=== PATIENT | male | born 1980 | race Caucasian/White ===

== ENCOUNTER 2020-09-22 19:47 | Emergency (ER) | payer OTHER, SELFPAY ==
--- NOTE | ~2020-09-22 | CT_ITS ---
EXAMINATION: CT brain wo con INDICATION: Altered mental status COMPARISON: None TECHNIQUE: Standard unenhanced head CT. The dose-length product (DLP) was 605.33 mGy-cm. The mA was a djusted according to patient size. Iterative reconstruction technique was employed. FINDINGS: There is no intracranial hemorrhage, acute infarction, or abnormal mass lesion. The ventric les are normal. There is no abnormal mass effect or midline shift. The kirkpatrick-white matter differentiat ion is normal. The basal cisterns are patent. The orbits are normal. There is mild mucosal thickening of the paranasal sinuses. IMPRESSION: 1. No acute intracranial abnormality. Reviewed, dictated and finalized at location A. IFIED NURSES AIDE
[2020-09-22 19:51] VITALS: BP 158/72; PULSE 92; RESP 18; TEMP 36.7; O2SAT 99
--- NOTE | 2020-09-22 20:18 | ED.OVERDOSE ---
HPI - Overdose General Chief Complaint: Overdose Stated Complaint: od-fentanyl Time Seen by Provider: 09/22/20 20:09 Source: patient Mode of arrival: ambulatory Limitations: no limitations History of Present Illness HPI Narrative: Patient is a 40-year-old male brought in by EMS after overdosing on fentanyl. Patient was found unresponsive by his girlfriend, 911 was called, Police Department gave him 4 mg of Narcan, and became responsive right after, reverse his symptoms. Patient admits to snorting fentanyl. Denies any other drugs. Patient complaining of nausea feel like shit . Patient denies any headache, dizziness, chest pain, shortness of breath, abdominal pain, vomiting, diarrhea, fever or chills. Denies suicidal or homicidal ideation. Patient admits to chronic drug abuse. Related Data Allergies Allergy/AdvReac Type Severity Reaction Status Date / Time No Known Allergies Allergy Unverified 03/11/18 21:17 Review of Systems Review of Systems: All systems reviewed & are unremarkable except as noted in HPI and below Constitutional: Constitutional: Denies body ache(s), Denies chills, Denies excessive sweating, Denies fatigue, Denies fever(s), Denies headache(s), Denies lethargy, Denies malaise, Denies weakness and Denies weight loss Eyes: Eyes: Denies blurry vision, Denies change in vision and Denies loss of vision ENT: Denies dizziness, Denies ear discharge, Denies headache(s), Denies lip swelling, Denies epistaxis, Denies nasal congestion, Denies neck pain, Denies throat swelling and Denies tongue swelling Cardiovascular: Cardiovascular: Denies chest pain, Denies chest pain at rest, Denies chest pain with activity, Denies diaphoresis, Denies rapid heart rate, Denies edema, Denies irregular heart rhythm, Denies lightheadedness, Denies palpitations, Denies dyspnea and Denies dyspnea on exertion Respiratory: Respiratory: Denies chest congestion, Denies cough, Denies hemoptysis, Denies dyspnea and Denies dyspnea on exertion Gastrointestinal: Gastrointestinal: Denies abdominal pain, Denies melena, Denies hematochezia, Denies diarrhea, Denies vomiting and Denies hematemesis Musculoskeletal: Musculoskeletal: Denies abnormal gait, Denies deformity, Denies joint swelling, Denies limited range of motion, Denies neck pain and Denies numbness Neurologic: Denies Abnormal speech present, Denies abnormal gait, Denies confusion, Denies dizziness, Denies headache(s), Denies focal weakness, Denies loss of vision, Denies numbness, Denies Other visual disturbances, Denies Sensory deficit (Neuro) and Denies weakness Psychiatric: Psychiatric: Denies confusion, Denies depression, Denies auditory hallucinations, Denies homicidal ideation and Denies suicidal ideation Endocrine: Endocrine: Denies cold intolerance, Denies excessive sweating, Denies fatigue, Denies heat intolerance and Denies palpitations Hematologic/Lymphatic: Hematologic/Lymphatic: Denies easy bleeding and Denies easy bruising Allergic/Immunologic: Allergic/Immunologic: Denies lip swelling, Denies throat swelling and Denies tongue swelling Exam Const: General: cooperative, healthy appearing, comfortable, no acute distress, well developed, alert and awake; No confusion Orientation/consciousness: oriented to person, oriented to place, oriented to time, patient oriented x3 and No confusion Limitations: no limitations HENMT: Head: normal to inspection, normocephalic and atraumatic Ears: hearing grossly normal bilaterally, TM normal on the right and TM normal on the left General nose exam: Normal external nose present, Normal nares present and No nasal discharge present Face and sinus: normal facial exam Mouth: Yes Normal oral and palatal mucosa present, Yes lip normal, Yes tongue normal and Yes oropharynx normal Throat: posterior oropharynx normal, tonsils normal and uvula midline Eyes: General: appearance normal, both eyes and all related structures Pupils: Equal, round and reactive pup
[2020-09-22] MEDS: ONDANSETRON INJ 4 MG/2 ML VIAL IV PUSH (21:11)
[2020-09-22] MEDS: SODIUM CHLORIDE 0.9% IV 1,000 ML 999 ML IV CONT (21:13)
[2020-09-22 21:36] VITALS: BP 132/68; PULSE 78; RESP 16; O2SAT 97
--- NOTE | 2020-09-22 22:03 | PC.NURSE ---
Pt refused to let this RN draw labs in specific areas where attempt could have been made. States You arent going there, that hurts. Only right here. Multiple attempts made in areas pt pointed out, unsuccessful.
[2020-09-22 22:15] LABS: Barbiturate Screen Urine Negative (Negative); Benzodiazepines Screen Urine Negative (Negative)
[2020-09-22 22:20] LABS: Cannabinoid Screen Urine Positive (Negative); Cocaine Screen Urine Negative (Negative); Methadone Screen Urine Negative (Negative); Opiate Screen Urine Negative (Negative); Phencyclidine Screen Urine Negative (Negative)
[2020-09-22 22:43] LABS: Amphetamine Screen Urine Positive (Negative)
--- NOTE | 2020-09-22 23:34 | PC.NURSE ---
Report received from JUAN Albert. Assumed care of patient at this time.
--- NOTE | 2020-09-23 00:13 | PC.NURSE ---
This nurse went into have patient sign AMA, patient states he was not refusing anything. Patient states that we can draw blood. This nurse was unsuccessful in attempt. record librarian notified, contacted phlebotomy, spoke with Kaitlynn, she stated she will come down to draw patient when she can.
--- NOTE | 2020-09-23 01:05 | PC.NURSE ---
Patient refused repeat VS.
--- NOTE | 2020-09-23 01:21 | PC.NURSE ---
Another nurse attempted blood draw, unsuccessful. ERP notified.
== END 2020-09-23 05:22 | disposition left against medical advice (07) ==
PROVIDERS: Emergency Provider Emergency Medicine
DX: T40.411A Poisoning by fentanyl or fentanyl analogs, accidental (unintentional), initial encounter (principal)
CPT/HCPCS: 70450; 80307; 96361; 96374; 99284; J2405; J7030

== ENCOUNTER 2020-11-10 15:51 | Emergency (ER) | payer OTHER, SELFPAY ==
--- NOTE | ~2020-11-10 | US_ITS ---
EXAMINATION:US venous doppler LE RT INDICATION:Erythema of the calf TECHNIQUE: Multiple grayscale, color flow and Doppler images of the right lower extremity deep venous systems were obtained and reviewed. COMPARISON:No prior studies for comparison. FINDINGS: The common femoral, superficial femoral and popliteal veins demonstrate normal respiratory variation, augmentation and compressibility. Color flow is also seen within the posterior tibial, pe roneal, greater saphenous and profunda veins. IMPRESSION: 1: No lower extremity deep venous thrombosis. Reviewed, dictated and finalized at location A.
[2020-11-10 15:54] VITALS: PULSE 62; RESP 18; TEMP 36.8; O2SAT 100
--- NOTE | 2020-11-10 18:54 | ED.GENADULT ---
HPI - General Adult General Chief complaint: Skin/Abscess/Foreign Body Stated complaint: right leg swelling Time Seen by Provider: 11/10/20 17:44 Source: patient History of Present Illness HPI narrative: Patient is a 40 y/o male complaining of sharp and burning right lower leg pain starting 2 days ago. He rates his pain as 6-7/10. Weight bearing aggravates his pain. There is no pain radiation. He states that he took some Bactrim from previous prescription and he feels slightly better. He has no fever or chill. Related Data Home Medications Medication Instructions Recorded Confirmed sulfamethoxazole-trimethoprim tablet 11/10/20 11/10/20 Allergies Allergy/AdvReac Type Severity Reaction Status Date / Time Penicillins AdvReac Nausea and Verified 11/10/20 15:57 Vomiting Review of Systems Constitutional: Constitutional: Denies chills, Denies fever(s), Denies headache(s) and Denies weakness Eyes: Eyes: Denies blurry vision ENT: Denies headache(s) and Denies neck pain Cardiovascular: Cardiovascular: Denies chest pain and Denies dyspnea Respiratory: Respiratory: Denies cough and Denies dyspnea Gastrointestinal: Gastrointestinal: Denies abdominal pain, Denies diarrhea, Denies nausea and Denies vomiting Genitourinary: Genitourinary: Denies hematuria and Denies dysuria Musculoskeletal: Musculoskeletal: Denies back pain, Denies neck pain and Reports other (right leg pain) Integumentary/Breasts: Skin/Breast: Reports erythema (right leg) Neurologic: Denies headache(s) and Denies weakness [facility] Social History Social History Gender identity (if verbalized by the patient): Male Exam Const: General: no acute distress and well developed Orientation/consciousness: oriented to person, oriented to place, oriented to time and patient oriented x3 HENMT: Head: normocephalic Ears: external ears normal General nose exam: Normal external nose present Eyes: General: appearance normal, both eyes and all related structures Conjunctivae: conjunctivae normal Neck: Neck: normal visual inspection and full ROM Chest: Chest palpation & inspection: normal inspection of the chest and no tenderness Resp: Effort & Inspection: normal respiratory effort Auscultation: clear to auscultation bilaterally Cardio: Rate: regular rate Rhythm: regular rhythm GI: GI Palp: No abdominal tenderness and Yes Soft to palpation Skin: General skin exam: normal color, turgor normal and erythema (right lower leg) Neuro: General: oriented to person, oriented to place, oriented to time and patient oriented x3 Cognition (Neuro): normal cognition Extrem: General: normal to inspection, full ROM and no pedal edema Psych: Appearance: grossly normal Mental Status: mental status grossly normal Affect: normal affect Course Reevaluation(s) Reevaluation #1: Patient left ED before labs are done and before evaluation is complete. He is considered to have left AMA. He is awake, alert and competent to make medical decision for himself. Date: 11/10/20 Vital Signs Vital signs: Vital Signs Temperature 36.8 C 11/10/20 15:54 Pulse Rate 62 11/10/20 15:54 Respiratory Rate 18 11/10/20 15:54 Pulse Oximetry 100 11/10/20 15:54 Temperature 36.8 C 11/10/20 15:54 Pulse Rate 62 11/10/20 15:54 Respiratory Rate 18 11/10/20 15:54 Pulse Oximetry 100 11/10/20 15:54 Medical Decision Making Vital Signs Vital Signs: Vital Signs Temperature 36.8 C 11/10/20 15:54 Pulse Rate 62 11/10/20 15:54 Respiratory Rate 18 11/10/20 15:54 Pulse Oximetry 100 11/10/20 15:54 Temperature 36.8 C 11/10/20 15:54 Pulse Rate 62 11/10/20 15:54 Respiratory Rate 18 11/10/20 15:54 Pulse Oximetry 100 11/10/20 15:54 Discharge Plan Discharge Clinical Impression: Cellulitis and abscess of right leg Patient Disposition: Left Against Medical Advice Condition: Stable
== END 2020-11-10 19:36 | disposition left against medical advice (07) ==
PROVIDERS: Emergency Provider Emergency Medicine
DX: L03.115 Cellulitis of right lower limb (principal); L02.415 Cutaneous abscess of right lower limb
CPT/HCPCS: 93971; 99284

== ENCOUNTER 2020-11-25 21:32 | Emergency (ER) | payer OTHER, SELFPAY ==
[2020-11-25 21:38] VITALS: BP 123/63; PULSE 81; RESP 20; TEMP 37.4; O2SAT 98
[2020-11-26 00:46] VITALS: BP 95/56; PULSE 76; RESP 20; O2SAT 98
--- NOTE | 2020-11-26 00:46 | ED.SKABFB ---
HPI - Skin/Abscess/Foreign Bdy General Chief complaint: Skin/Abscess/Foreign Body Stated complaint: cyst on thigh Time Seen by Provider: 11/26/20 00:27 Source: patient Mode of arrival: ambulatory Limitations: no limitations History of Present Illness HPI narrative: This is a 40 year old male who presents for evaluation of left thigh redness and swelling. He states he developed redness and swelling to his left inner thigh 2 days ago. He reports history of ABSCESS. He states he took some old antibiotics 2 weeks ago for an abscess somewhere else. HE states it was an old prescription of an antibiotic, and he was not evaluated by anyone. He denies nausea, vomiting or fever. Related Data Home Medications Medication Instructions Recorded Confirmed sulfamethoxazole-trimethoprim tablet 11/10/20 11/10/20 Allergies Allergy/AdvReac Type Severity Reaction Status Date / Time Penicillins AdvReac Nausea and Verified 11/10/20 15:57 Vomiting Review of Systems Review of Systems: All systems reviewed & are unremarkable except as noted in HPI and below PMFSH Past Medical History Medical History (Updated 11/26/20 @ 03:21 by Jami Mcdonough MD) Abscess Social History Social History (Updated 11/26/20 @ 00:47 by Jami Mdconough MD) Smoking packs per day: 1 Smoking cigarettes per day: 20.0 Smoking status: Current every day smoker Substance use: current Substance use type: IV drugs and methamphetamine Gender identity (if verbalized by the patient): Male Exam Const: General: no acute distress Orientation/consciousness: patient oriented x3 Eyes: EOM: EOMs intact bilaterally Resp: Effort & Inspection: normal respiratory effort and no retractions Auscultation: clear to auscultation bilaterally Cardio: Rate: regular rate Rhythm: regular rhythm GI: Auscultation: normal bowel sounds Other: soft, nontender Skin: Other: left inner thigh with 6 x 6 area of induration, swelling with surround erythema Neuro: General: patient oriented x3 and moves all extremities Course Reevaluation(s) Reevaluation #1: I performed an I and d and I was unable to get purulent drainage. Will treat for cellulitis. Bedside us does not shows definite fluid collection. Patient was given juice in ER . He is not altered Date: 11/26/20 Time: 03:19 Vital Signs Vital signs: Vital Signs Temperature 99.3 F 11/25/20 21:38 Pulse Rate 81 11/25/20 21:38 Respiratory Rate 20 11/25/20 21:38 Blood Pressure 123/63 11/25/20 21:38 Pulse Oximetry 98 11/25/20 21:38 Temperature 99.3 F 11/25/20 21:38 Pulse Rate 77 11/26/20 03:48 Respiratory Rate 18 11/26/20 03:48 Blood Pressure 110/60 11/26/20 03:48 Pulse Oximetry 97 11/26/20 03:48 Procedures Abscess I/D lower extremity: Date of Incision: 11/26/20 Time of Incision: 03:16 Side (if applicable): left (inner thigh) Local Anesthetic: lidocaine 1% and with epi Amount of anesthesia used (mL): 2 Technique: incised with #11 blade Amount of fluid expressed (mL): 2 Irrigation: No Packing used?: none I&D Results: Blood Complications: bleeding Abcess I&D Additional Comments: no purulent drainage MDM - Skin/Abscess/Foreign Bdy Lab Data Attestation: I reviewed the patient's lab results. Result diagrams: 11/26/20 01:19 11/26/20 01:19 Labs: Lab Results 11/26/20 11/26/20 Range/Units 01:19 01:19 WBC 9.5 (4.5-10.0) K/mm3 RBC 4.57 L (4.6-6.20) M/mm3 Hgb 14.0 (14.0-18.0) g/dL Hct 43.3 (42.0-52.0) % MCV 94.7 (80-100) fl MCH 30.6 (26-34) pg MCHC 32.3 (32-36) g/dl RDW 12.9 (11.5-14.5) % Plt Count 287 (150-375) k/mm3 MPV 11.5 H (7.4-10.4) fl Immature Gran % (Auto) 0.3 (0-0.5) % Neut % (Auto) 73.8 H (45.5-73.1) % Lymph % (Auto) 14.1 L (18.3-44.2) % [place] % (Auto) 10.3 H (2.6-8.5) % Eos % (Auto) 1.
[2020-11-26 01:31] LABS: Basophils Percent Auto 0.2 % (0.2-1.2); Eosinophils Absolute Auto 0.1 K/mm3 (0-0.3); Eosinophils Percent Auto 1.3 % (0-4.4); Hematocrit 43.3 % (42.0-52.0); Immature Granulocyte Absolute 0.03 K/mm3 (0.00-0.031); Immature Granulocyte Percent A 0.3 % (0-0.5); Lymphocytes Absolute Auto 1.34 K/mm3 (0.9-3.2); Lymphocytes Percent Auto 14.1 % (18.3-44.2); Mean Corpuscular HGB Conc 32.3 g/dl (32-36); Mean Corpuscular Hemoglobin 30.6 pg (26-34); Mean Corpuscular Volume 94.7 fl (80-100); Mean Platelet Volume 11.5 fl (7.4-10.4); Monocytes Percent Auto 10.3 % (2.6-8.5); Neutrophils Percent Auto 73.8 % (45.5-73.1); Platelet Count Result 287 k/mm3 (150-375); Red Blood Count 4.57 M/mm3 (4.6-6.20); Red Cell Distribution Width 12.9 % (11.5-14.5); White Blood Count 9.5 K/mm3 (4.5-10.0)
[2020-11-26 01:49] LABS: Alanine Aminotransferase 59 U/L (4-50); Albumin Level 4.6 g/dL (3.5-5.1); Alkaline Phosphatase 61 U/L (38-126); Anion Gap 8 mmol/L (8-16); Aspartate Amino Transferase 66 U/L (17-59); Bilirubin,Total 0.5 mg/dL (0.2-1.3); Blood Urea Nitrogen 15 mg/dL (9-20); CRP 4.4 mg/dL (<1.0); Carbon Dioxide 30 mmol/L (22-30); Chloride 100 mmol/L (98-107); Estimated CRCL calculation 118 ml/min; Estimated Glomerular Filt Rate > 60; Glucose 68 mg/dL (75-110); Potassium 3.7 mmol/L (3.4-5.0); Sodium 138 mmol/L (137-145)
[2020-11-26] MEDS: LIDO 1%/EPINEPHRINE 1:100,000 20 ML VIAL INFILTRATE (02:58)
[2020-11-26] MEDS: POVIDONE-IODINE 10% SOLUTION 118 ML BOTTLE 10 ML TOPICAL (02:58)
[2020-11-26 03:48] VITALS: BP 110/60; PULSE 77; RESP 18; O2SAT 97
--- NOTE | 2020-11-26 03:49 | PC.NURSE ---
enter room , pt was getting antibodic oint,ent out of the drawers. advised supervisor in charge , pt was using cuss words toward staff, security escorted pt .
== END 2020-11-26 03:56 | disposition home or self-care (01) ==
PROVIDERS: Emergency Provider General Practice
DX: L03.116 Cellulitis of left lower limb (principal); F17.210 Nicotine dependence, cigarettes, uncomplicated
CPT/HCPCS: 10060; 36415; 80053; 85025; 86140; 99283

== ENCOUNTER 2020-11-30 02:08 | Emergency (ER) | payer OTHER, SELFPAY ==
--- NOTE | ~2020-11-30 | XR_ITS ---
EXAMINATION: XR chest 1V portable DATE: 11/30/2020 02:52 INDICATION: Cough TECHNIQUE: frontal view of the chest was obtained. COMPARISON: None FINDINGS: The lungs are clear with no focal airspace opacities, pulmonary edema, pleural effusion or pneumothor ax. The cardiomediastinal silhouette is normal. Prominent hypertrophic change at the anterior right f irst rib. IMPRESSION: 1. No acute cardiopulmonary disease. Reviewed, dictated and finalized at location A.
[2020-11-30 02:19] VITALS: BP 122/96; PULSE 101; RESP 24; TEMP 36.7; O2SAT 95
--- NOTE | 2020-11-30 02:21 | ECG_ITS ---
Measurements Intervals [place] Rate: 82 P: 70 NH: 135 QRS: 73 QRSD: 93 T: 47 QT: 346 QTc: 406 Interpretive Statements SINUS RHYTHM BASELINE ARTIFACT- V4-V6 NORMAL ECG Electronically Signed On 11-30-2020 6:57:09 CDT by Bulmaro Llamas D.O.
[2020-11-30 02:47] LABS: Basophils Percent Auto 0.3 % (0.2-1.2); Eosinophils Absolute Auto 0.1 K/mm3 (0-0.3); Eosinophils Percent Auto 0.7 % (0-4.4); Hematocrit 40.9 % (42.0-52.0); Hemoglobin 13.4 g/dL (14.0-18.0); Immature Granulocyte Absolute 0.04 K/mm3 (0.00-0.031); Immature Granulocyte Percent A 0.5 % (0-0.5); Lymphocytes Absolute Auto 1.63 K/mm3 (0.9-3.2); Lymphocytes Percent Auto 18.5 % (18.3-44.2); Mean Corpuscular HGB Conc 32.8 g/dl (32-36); Mean Corpuscular Hemoglobin 30.4 pg (26-34); Mean Corpuscular Volume 92.7 fl (80-100); Mean Platelet Volume 9.7 fl (7.4-10.4); Monocytes Absolute Auto 0.9 K/mm3 (0.1-0.6); Monocytes Percent Auto 10.5 % (2.6-8.5); Neutrophils Absolute Auto 6.1 K/mm3 (1.3-6.7); Neutrophils Percent Auto 69.5 % (45.5-73.1); Platelet Count Result 316 k/mm3 (150-375); Red Blood Count 4.41 M/mm3 (4.6-6.20); Red Cell Distribution Width 12.8 % (11.5-14.5); White Blood Count 8.8 K/mm3 (4.5-10.0)
[2020-11-30 02:55] LABS: Alanine Aminotransferase 54 U/L (4-50); Albumin Level 4.2 g/dL (3.5-5.1); Alkaline Phosphatase 68 U/L (38-126); Anion Gap 2 mmol/L (8-16); Aspartate Amino Transferase 61 U/L (17-59); Bilirubin,Total 0.3 mg/dL (0.2-1.3); Blood Urea Nitrogen 16 mg/dL (9-20); Calcium 9.2 mg/dL (8.4-10.2); Carbon Dioxide 35 mmol/L (22-30); Chloride 103 mmol/L (98-107); Estimated Glomerular Filt Rate > 60; Glucose 97 mg/dL (75-110); Potassium 4.6 mmol/L (3.4-5.0); Sodium 140 mmol/L (137-145)
--- NOTE | 2020-11-30 03:39 | ED.GENADULT ---
HPI - General Adult General Chief complaint: Unspecified Stated complaint: doesnt feel well Time Seen by Provider: 11/30/20 02:12 History of Present Illness HPI narrative: Patient is a 40-year-old gentleman who presents the emergency department with chief complaint of I do not feel well the patient reports that he has been having to add fentanyl into his usual drug cocktail of methamphetamine to combat his feelings of illness. Patient states that tonight he used his normal dose of meth and his normal dose of fentanyl and still just feels bad. Patient called EMS [facility] to be transported to the emergency department for further evaluation the patient also reports that he has history of bipolar disorder and feels as though it is out of sync. The patient reports that he has no suicidal or homicidal ideation. Patient denies fevers does report that he has had a cough. The patient reports that he uses fentanyl and methamphetamine usually by insufflation but occasionally does shoot via IV. Related Data Home Medications Medication Instructions Recorded Confirmed sulfamethoxazole-trimethoprim tablet 11/10/20 11/10/20 Allergies Allergy/AdvReac Type Severity Reaction Status Date / Time Penicillins AdvReac Nausea and Verified 11/10/20 15:57 Vomiting Review of Systems Review of Systems: Narrative: A 10 system review of systems was completed on the patient and is negative except for what is stated in the HPI. Nursing and ancillary documentation was reviewed. PMFSH Past Medical History Medical History Abscess Social History Social History Smoking packs per day: 1 Smoking cigarettes per day: 20.0 Smoking status: Current every day smoker Substance use: current Substance use type: IV drugs and methamphetamine Gender identity (if verbalized by the patient): Male Exam Narrative: Exam Narrative: GENERAL: Well-appearing, well-nourished, and in no acute distress. HEAD: Normocephalic, atraumatic. EYES: PERRLA and EOMI. ENT: Nares clear, no rhinorrhea or epistaxis. Mucous membranes moist. NECK: Supple. CHEST: Clear to auscultation. No respiratory distress. HEART: Regular rate and rhythm. No murmur heard. Normal peripheral pulses. ABDOMEN: Soft, nontender, nondistended, normal active bowel sounds. EXTREMITIES: Normal range of motion. No edema. SKIN: Warm, dry, no rash. NEURO: No focal deficits. Alert and oriented x3. PSYCH: Normal mood and affect. Course Course Emergency Course: Chest x-ray shows some perihilar infiltrate Due to the patient coughing and not feeling well the patient will be started on doxycycline Vital Signs Vital signs: Vital Signs Temperature 36.7 C 11/30/20 02:19 Pulse Rate 101 H 11/30/20 02:19 Respiratory Rate 24 H 11/30/20 02:19 Blood Pressure 122/96 H 11/30/20 02:19 Pulse Oximetry 95 11/30/20 02:19 Temperature 36.7 C 11/30/20 02:19 Pulse Rate 101 H 11/30/20 02:19 Respiratory Rate 24 H 11/30/20 02:19 Blood Pressure 122/96 H 11/30/20 02:19 Pulse Oximetry 95 11/30/20 02:19 Medical Decision Making Vital Signs Vital Signs: Vital Signs Temperature 36.7 C 11/30/20 02:19 Pulse Rate 101 H 11/30/20 02:19 Respiratory Rate 24 H 11/30/20 02:19 Blood Pressure 122/96 H 11/30/20 02:19 Pulse Oximetry 95 11/30/20 02:19 Temperature 36.7 C 11/30/20 02:19 Pulse Rate 101 H 11/30/20 02:19 Respiratory Rate 24 H 11/30/20 02:19 Blood Pressure 122/96 H 11/30/20 02:19 Pulse Oximetry 95 11/30/20 02:19 Lab Data Result diagrams: 11/30/20 02:38 11/30/20 02:38 Labs: Lab Results 11/30/20 11/30/20 Range/Units 02:38 02:38 WBC 8.8 (4.5-10.0) K/mm3 RBC 4.41 L (4.6-6.20) M/mm3 Hgb 13.4 L (14.0-18.0) g/dL Hct 40.9 L (42.0-52.0) % MCV 92.7 (80-100) fl MCH
[2020-11-30 06:05] VITALS: BP 132/82; PULSE 89; RESP 20; O2SAT 96
== END 2020-11-30 06:10 | disposition home or self-care (01) ==
PROVIDERS: Emergency Provider Emergency Medicine
DX: F19.10 Other psychoactive substance abuse, uncomplicated (principal); J20.8 Acute bronchitis due to other specified organisms; F17.210 Nicotine dependence, cigarettes, uncomplicated
CPT/HCPCS: 36415; 71045; 80053; 85025; 93005; 99283

== ENCOUNTER → 2021-05-09 13:11 | Outpatient (CLI) | payer OTHER, SELFPAY ==
--- NOTE | ~2021-05-09 | XR_ITS ---
EXAMINATION: XR hand LT min 3V INDICATION: Left hand pain, fifth metacarpal fracture, initial encounter TECHNIQUE: Three views of the left hand are obtained. COMPARISON: None available FINDINGS: There is a mildly comminuted fracture at the distal aspect of the left fifth metacarpal. Th ere is valgus and palmar angulation at the fracture site. Alignment at the fifth metacarpophalangeal joint is maintained. No additional acute osseous abnormality is identified. There is medial soft tiss ue swelling of the hand. IMPRESSION: 1. Distal fifth metacarpal fracture with angulation. Reviewed, dictated and finalized at location A.
== END ==
PROVIDERS: Visit Provider Plastic Surgery
DX: S62.307A Unspecified fracture of fifth metacarpal bone, left hand, initial encounter for closed fracture (principal)
CPT/HCPCS: 73130

== ENCOUNTER 2022-12-26 20:16 | Emergency (ER) | payer MEDICAID, SELFPAY ==
[2022-12-26 20:36] VITALS: BP 135/74; PULSE 97; RESP 18; TEMP 36.6; O2SAT 95
--- NOTE | 2022-12-26 21:08 | ED.GENADULT ---
HPI - General Adult General Chief complaint: Skin/Abscess/Foreign Body Stated complaint: rash Time Seen by Provider: 12/26/22 20:59 History of Present Illness HPI narrative: 42-year-old male presented emerged department for evaluation after having an allergic reaction. Patient states approximately 2 days ago he was mowing grass and using a weed eater. Patient does have a rash over his arms and legs that does coincide with areas of exposure. Patient denies any difficulty breathing or swallowing. Patient has been using calamine lotion without improvement. Related Data Home Medications Medication Instructions Recorded Confirmed sulfamethoxazole 800 tablet 11/10/20 11/10/20 mg-trimethoprim 160 mg tablet Allergies Allergy/AdvReac Type Severity Reaction Status Date / Time Penicillins AdvReac Nausea and Verified 06/25/22 10:45 Vomiting Review of Systems Review of Systems: All systems reviewed & are unremarkable except as noted in HPI and below PMFSH Past Medical History Medical History Abscess Social History Social History Smoking packs per day: 1 Smoking cigarettes per day: 20.0 Smoking status: Current every day smoker Substance use: current Substance use type: IV drugs and methamphetamine Gender identity (if verbalized by the patient): Male Exam Narrative: APPEARANCE: Well appearing, no pain, no distress, well-nourished. HEAD: normocephalic, atraumatic. EYES: PERRLA/EOMI, conjunctivae clear. NECK: Supple. No adenopathy, no masses. RESPIRATORY: Airway patent, respirations nonlabored. Clear to auscultation bilaterally, no rales, rhonchi, wheezing. CARDIOVASCULAR: Regular rate and rhythm without murmurs rubs or gallops. ABDOMINAL: Soft, nontender, nondistended, normal bowel sounds MUSCULOSKELETAL: Moves all extremities. Strength/ROM intact, No edema, No calf tenderness. NEURO: Alert. Cranial nerves II through XII intact. Good gait. Good coordination SKIN: Atopic dermatitis rash Course Course Emergency Course: 42 male presenting to the emergency room for evaluation of a rash that is consistent with poison cheyanne. Patient was treated with IM Kenalog 40. Patient was advised the treatment plan for home. All question concerns were addressed. Patient was encouraged of close follow-up with primary care physician. Vital Signs Vital signs: Vital Signs Temperature 98 F 12/26/22 20:36 Pulse Rate 97 12/26/22 20:36 Respiratory Rate 18 12/26/22 20:36 Blood Pressure 135/74 12/26/22 20:36 Pulse Oximetry 95 12/26/22 20:36 Oxygen Delivery Room Air 12/26/22 20:36 Temperature 98 F 12/26/22 20:36 Pulse Rate 97 12/26/22 20:36 Respiratory Rate 18 12/26/22 20:36 Blood Pressure 135/74 12/26/22 20:36 Pulse Oximetry 95 12/26/22 20:36 Oxygen Delivery Room Air 12/26/22 20:36 Medical Decision Making Vital Signs Vital Signs: Vital Signs Temperature 98 F 12/26/22 20:36 Pulse Rate 97 12/26/22 20:36 Respiratory Rate 18 12/26/22 20:36 Blood Pressure 135/74 12/26/22 20:36 Pulse Oximetry 95 12/26/22 20:36 Oxygen Delivery Room Air 12/26/22 20:36 Temperature 98 F 12/26/22 20:36 Pulse Rate 97 12/26/22 20:36 Respiratory Rate 18 12/26/22 20:36 Blood Pressure 135/74 12/26/22 20:36 Pulse Oximetry 95 12/26/22 20:36 Oxygen Delivery Room Air 12/26/22 20:36 Discharge Plan Discharge Clinical Impression: Poison cheyanne Patient Disposition: Home, Self-Care Condition: Stable Instructions: Antibiotic Form, Poison Cheyanne (ED) Additional Instructions: You were treated with a single dose of steroid in the emergency department. This should alleviate your symptoms. If you have persistent symptoms have close follow-up with your primary care physician. Prescriptions: No Action sulfamethoxazole-trimetho
[2022-12-26] MEDS: TRIAMCINOLONE ACET INJ 40 MG/ML VIAL IM (21:17)
== END 2022-12-26 21:33 | disposition home or self-care (01) ==
LOC: ANHED 21:29
PROVIDERS: Emergency Provider Emergency Medicine
DX: L23.7 Allergic contact dermatitis due to plants, except food (principal); F17.210 Nicotine dependence, cigarettes, uncomplicated
CPT/HCPCS: 96372; 99283; J3301

== ENCOUNTER 2022-12-27 07:41 | Emergency (ER) | payer MEDICAID, SELFPAY ==
[2022-12-27 07:44] VITALS: BP 148/95; PULSE 92; RESP 20; TEMP 36.9; O2SAT 95
[2022-12-27 07:49] VITALS: BP 148/95; PULSE 90; RESP 17; O2SAT 98
[2022-12-27] MEDS: predniSONE 20 MG TABLET 60 MG PO (09:45)
[2022-12-27] MEDS: EPINEPHrine HCL INJ 1 MG/ML AMPUL 0.3 MG IM (09:46)
--- NOTE | 2022-12-27 09:54 | ED.SKABFB ---
HPI - Skin/Abscess/Foreign Bdy General Chief complaint: Skin/Abscess/Foreign Body Stated complaint: rash Time Seen by Provider: 12/27/22 09:01 History of Present Illness HPI narrative: 42-year-old male reports for evaluation of a generalized rash to his legs, arms, back and chest that started 3 to 4 days ago. Patient states 3 to 4 days ago prior to the rash starting he was mowing the lawn. He presented to the emergency department yesterday, was given IM Kenalog and advised to use calamine cream. He reports back today because he states he feels the rash is getting worse. States the rash is pruritic and he has been able to sleep the past 2 nights due to the itchiness. Denies fever, body aches or chills. Denies history of poison harjit or poison oak. Denies lip or tongue swelling, difficulty breathing, shortness of breath. Related Data Home Medications Medication Instructions Recorded Confirmed sulfamethoxazole 800 tablet 11/10/20 11/10/20 mg-trimethoprim 160 mg tablet Allergies Allergy/AdvReac Type Severity Reaction Status Date / Time Penicillins AdvReac Nausea and Verified 06/25/22 10:45 Vomiting Review of Systems Review of Systems: CONSTITUTIONAL: Denies fever, chills EYES: Denies visual changes, redness, or discharge. ENT: Denies rhinorrhea, congestion, sore throat, or otalgia. CARDIOVASCULAR: Denies chest pain, palpitations, or edema. RESPIRATORY: Denies cough or dyspnea. GASTROINTESTINAL: Denies abdominal pain, nausea, vomiting, or diarrhea. GENITOURINARY: Denies dysuria or hematuria. SKIN: See HPI MUSCULOSKELETAL: Denies back pain, joint pain, or myalgia. NEUROLOGIC: Denies headache, numbness, dizziness, or weakness. PSYCHIATRIC: Denies anxiety or depression. [facility] Past Medical History Medical History Abscess Social History Social History Smoking packs per day: 1 Smoking cigarettes per day: 20.0 Smoking status: Current every day smoker Substance use: current Substance use type: IV drugs and methamphetamine Gender identity (if verbalized by the patient): Male Exam Narrative: GENERAL: Well-appearing, in no acute distress. HEAD: Normocephalic NECK: Supple. CHEST: No respiratory distress. Clear to auscultation, no adventitious breath sounds. HEART: Regular rate and rhythm. No murmur heard. Normal peripheral pulses. ABDOMEN: Soft, nontender, normal active bowel sounds. EXTREMITIES: Normal range of motion. No edema. SKIN: Diffuse maculopapular rash to the bilateral legs, arms, chest and back with coalescing lesions to the lower extremities. No warmth or purulence drainage, no evidence of secondary infection. Negative Nikolsky's. NEURO: No focal deficits. Alert and oriented x3. PSYCH: Normal mood and affect. Course Vital Signs Vital signs: Vital Signs Temperature 98.5 F 12/27/22 07:44 Pulse Rate 92 12/27/22 07:44 Respiratory Rate 20 12/27/22 07:44 Blood Pressure 148/95 H 12/27/22 07:44 Pulse Oximetry 95 12/27/22 07:44 Oxygen Delivery Room Air 12/27/22 07:44 Temperature 98.5 F 12/27/22 07:44 Pulse Rate 74 12/27/22 10:57 Respiratory Rate 20 12/27/22 10:57 Blood Pressure 139/128 H 12/27/22 10:57 Pulse Oximetry 98 12/27/22 10:57 Oxygen Delivery Room Air 12/27/22 07:44 MDM - Skin/Abscess/Foreign Bdy MDM Narrative Medical decision making narrative: 42-year-old male reports for evaluation of a generalized rash to his legs, arms, back and chest that started 3 to 4 days ago after cutting grass. Patient was evaluated in the ED yesterday and was given IM Kenalog and sent home with return precautions. He returns for worsening rash. Vital stable, he is afebrile. Exam reveals a diffuse pruritic maculopapular rash Colace and lesions to the lower extremities. Negative Nikolsky's. Rash seems consistent with poison harjit vs
[2022-12-27] MEDS: EPINEPHrine HCL INJ 1 MG/ML AMPUL 0.5 MG IM (10:13)
[2022-12-27 10:57] VITALS: PULSE 74; RESP 20; O2SAT 98
== END 2022-12-27 11:01 | disposition home or self-care (01) ==
PROVIDERS: Emergency Provider Physician Assistant; PCP Emergency Medicine
DX: L23.7 Allergic contact dermatitis due to plants, except food (principal); F17.210 Nicotine dependence, cigarettes, uncomplicated
CPT/HCPCS: 96372; 99284; J0171; J7512

== ENCOUNTER 2023-02-07 20:17 | Observation (INO) | payer MEDICAID, SELFPAY ==
[2023-02-07] VITALS (7 sets, daily range): BP systolic 118–147; BP diastolic 70–97; PULSE 97–107; RESP 16–33; TEMP 37.4; O2SAT 91–99
--- NOTE | ~2023-02-07 | US_ITS ---
US scrotum doppler INDICATION: Retrograde injection TECHNIQUE: Testicular sonogram utilizing grayscale and color Doppler FINDINGS: The testes are normal in size and appearance. No focal lesions are seen. The right testes measures 4.4 x 2.4 x 2.9 cm centimeters, and the left testis measures 4.4 x 2.1 x 3 cm cm. There is n ormal vascular flow to both testes. There is a 6 mm right epididymal cysts. Left epididymis is unremarkable. There is no varicocele or hydrocele. IMPRESSION: 1. Right epididymal cyst measuring 6 mm. Reviewed, dictated and finalized at location A.
--- NOTE | ~2023-02-07 | XR_ITS ---
EXAMINATION: XR chest 1V portable Exam Date/Time: 02/07/2023 21:10 CDT HISTORY: weakness HX SEIZURES Comparison: 11/30/2020. RESULT: Lines, tubes, and devices: None. Lungs and pleura: Segmental acinar opacities in the right upper lung. Cardiomediastinal silhouette: Stable. Other: No acute osseous or upper abdominal finding. IMPRESSION: Focus of suspected aspiration in the right upper lung. Reviewed, dictated and finalized at location K.
--- NOTE | ~2023-02-07 | US_ITS ---
EXAMINATION: US venous doppler [facility] DATE: 02/07/2023 21:15 INDICATION: pain swelling in the lower limbs. TECHNIQUE: Grayscale images without and with compression and Doppler images of the bilateral lower ex tremity veins were obtained. COMPARISON: None FINDINGS: The right common femoral vein, profunda (deep) femoral vein, femoral vein, popliteal vein, peroneal v ein, posterior tibial veins, gastrocnemius vein, and greater saphenous vein are patent. The left common femoral vein, profunda (deep) femoral vein, femoral vein, popliteal vein, peroneal v ein, posterior tibial veins, gastrocnemius vein, and greater saphenous vein are patent. IMPRESSION: 1. Patent bilateral lower extremity veins. No evidence of deep venous thrombosis. Reviewed, dictated and finalized at location K. IMPRESSION: 1. Patent bilateral lower extremity veins. No evidence of deep venous thrombos is.
[2023-02-07 20:30] LABS: Glucose Point of Care 98 mg/dl (65-105)
--- NOTE | 2023-02-07 20:35 | ECG_ITS ---
Measurements Intervals [place] Rate: 107 P: 42 [place]: 129 QRS: 43 QRSD: 98 T: 33 QT: 320 QTc: 428 Interpretive Statements SINUS TACHYCARDIA BORDERLINE ECG NO PREVIOUS ECG AVAILABLE FOR COMPARISON Electronically Signed On 02-08-2023 10:05:33 CDT by Bulmaro Llamas D.O.
[2023-02-07] MEDS: SODIUM CHLORIDE 0.9% IV 1,000 ML 999 ML IV CONT (20:52)
[2023-02-07 21:01] LABS: Basophils Percent Auto 0.2 % (0.2-1.2); Eosinophils Absolute Auto 0.1 K/mm3 (0-0.3); Hematocrit 32.5 % (42.0-52.0); Hemoglobin 10.6 g/dL (14.0-18.0); Immature Granulocyte Absolute 0.02 K/mm3 (0.00-0.031); Immature Granulocyte Percent A 0.2 % (0-0.5); Lymphocytes Absolute Auto 0.89 K/mm3 (0.9-3.2); Lymphocytes Percent Auto 9.5 % (18.3-44.2); Mean Corpuscular HGB Conc 32.6 g/dl (32-36); Mean Corpuscular Hemoglobin 30.5 pg (26-34); Mean Corpuscular Volume 93.4 fl (80-100); Mean Platelet Volume 10.2 fl (7.4-10.4); Monocytes Absolute Auto 1.2 K/mm3 (0.1-0.6); Monocytes Percent Auto 12.7 % (2.6-8.5); Neutrophils Absolute Auto 7.2 K/mm3 (1.3-6.7); Neutrophils Percent Auto 76.4 % (45.5-73.1); Platelet Count Result 235 k/mm3 (150-375); Red Blood Count 3.48 M/mm3 (4.6-6.20); White Blood Count 9.4 K/mm3 (4.5-10.0)
[2023-02-07 21:07] LABS: Lactic Acid Reflex 0.9 mmol/L (0.7-2.0)
[2023-02-07 21:10] LABS: Ethanol < 10 mg/dL (<10); Magnesium 1.8 mg/dL (1.6-2.3)
--- NOTE | 2023-02-07 21:12 | PC.NURSE ---
This RN and 2 other RNs at bedside assisting EDP Dr. Benton for line placement x2 attempts for right sided EJ unsuccessful by MD. Slight swelling noted airway and breathing not compromised. Will continue to monitor.
[2023-02-07 21:23] LABS: Troponin I < 0.012 ng/mL (0.000-0.034)
[2023-02-07 21:27] LABS: Barbiturate Screen Urine Negative (Negative); Benzodiazepines Screen Urine Negative (Negative)
[2023-02-07 21:28] LABS: Appearance Urine Turbid (Clear); Bacteria Urine None Seen /hpf; Bilirubin Urine 1+ (Negative); Blood Urine Negative (Negative); Color Urine Dark Yellow (Yellow); Glucose Urine UA Negative (Negative); Ketones Urine Trace mg/dL (Negative); Leukocyte Esterase Ur Negative LEU/UL (Negative); Mucus Urine Present /lpf; Need Manual Microscopic Reviewed; Nitrate Urine Negative (Negative); Non Pathogenic Casts >20; Protein Urine 1+ mg/dL (Negative); RBC Urine 0-2 /hpf (0-2); Specific Grav Ur 1.026 (1.001-1.035); Spermatozoa Urine Present; Squamous Epithelial Cell Urine Occasional /hpf (Few); pH Urine 5.5 (5.0-9.0)
[2023-02-07 21:28] LABS: Alanine Aminotransferase 34 U/L (6-50); Albumin Level 3.4 g/dL (3.5-5.1); Alkaline Phosphatase 72 U/L (38-126); Anion Gap 8 mmol/L (8-16); Aspartate Amino Transferase 50 U/L (17-59); Bilirubin,Total 0.6 mg/dL (0.2-1.3); Blood Urea Nitrogen 8 mg/dL (9-20); CRP 6.5 mg/dL (<1.0); Carbon Dioxide 24 mmol/L (22-30); Chloride 100 mmol/L (98-107); Estimated Glomerular Filt Rate > 60; Glucose 95 mg/dL (65-110); Potassium 3.4 mmol/L (3.4-5.0); Sodium 132 mmol/L (137-145)
[2023-02-07 21:29] LABS: Add Urine Microscopic? YES
[2023-02-07 21:32] LABS: Cannabinoid Screen Urine Positive (Negative); Cocaine Screen Urine Negative (Negative); Methadone Screen Urine Negative (Negative); Opiate Screen Urine Negative (Negative); Phencyclidine Screen Urine Negative (Negative)
[2023-02-07 21:53] LABS: Erythrocyte Sedimentation Rate 99 mm/hr (0-20)
[2023-02-07 22:05] LABS: Procalcitonin 0.4 ng/mL
[2023-02-07 22:09] LABS: Amphetamine Screen Urine Positive (Negative)
--- NOTE | 2023-02-07 22:50 | PC.NURSE ---
Report given to Katrin MARTINEZ, pt in bed sleeping. Right neck swelling still visible. MD notified.
--- NOTE | 2023-02-07 23:26 | ED.GENADULT ---
HPI - General Adult General Chief complaint: Overdose Stated complaint: FULL BODY TREMORS Time Seen by Provider: 02/07/23 20:24 History of Present Illness HPI narrative: Patient is a 42-year-old gentleman who presents the emergency room with chief complaint of overdose. Patient reports that he uses methamphetamine and also took some fentanyl today for pain in his lower extremities. The patient reports has been recently treated for cellulitis in his legs and has been admitted both at [facility] and [facility]. Patient states that today he used a bit too much and then also feels as though he is getting twitchy at this point patient reports he had a fever and reports that he has been treated for infection but has not completed this treatment. Related Data Home Medications Medication Instructions Recorded Confirmed sulfamethoxazole 800 tablet 11/10/20 11/10/20 mg-trimethoprim 160 mg tablet Allergies Allergy/AdvReac Type Severity Reaction Status Date / Time Penicillins AdvReac Nausea and Verified 06/25/22 10:45 Vomiting Review of Systems Review of Systems: A 10 system review of systems was completed on the patient and is negative except for what is stated in the HPI. Nursing and ancillary documentation was reviewed. [facility] Past Medical History Medical History Abscess Social History Social History Smoking packs per day: 1 Smoking cigarettes per day: 20.0 Smoking status: Current every day smoker Substance use: current Substance use type: IV drugs and methamphetamine Gender identity (if verbalized by the patient): Male Exam Narrative: GENERAL: Unkept-appearing, well-nourished, and in no acute distress. HEAD: Normocephalic, atraumatic. EYES: PERRLA and EOMI. ENT: Nares clear, no rhinorrhea or epistaxis. Mucous membranes moist. NECK: Supple. CHEST: Clear to auscultation. No respiratory distress. HEART: Regular rate and rhythm. No murmur heard. Normal peripheral pulses. ABDOMEN: Soft, nontender, nondistended, normal active bowel sounds. EXTREMITIES: Normal range of motion. No edema. SKIN: Warm, dry, multiple small ulcerations of the lower extremities. NEURO: No focal deficits. Alert and oriented x3. PSYCH: Normal mood and affect. Course Vital Signs Vital signs: Vital Signs Temperature 37.4 C 02/07/23 20:13 Pulse Rate 105 H 02/07/23 20:13 Respiratory Rate 16 02/07/23 20:13 Blood Pressure 147/97 H 02/07/23 20:13 Pulse Oximetry 99 02/07/23 20:13 Oxygen Delivery Room Air 02/07/23 20:13 Temperature 37.4 C 02/07/23 20:13 Pulse Rate 100 02/07/23 21:32 Respiratory Rate 33 H 02/07/23 21:32 Blood Pressure 119/70 02/07/23 21:32 Pulse Oximetry 98 02/07/23 21:32 Oxygen Delivery Room Air 02/07/23 20:30 Medical Decision Making MDM Narrative Medical decision making narrative: Differential diagnose includes sepsis, substance overdose, aspiration pneumonia, Laboratory studies were obtained which showed a white count of 9.4 hemoglobin was 10.6 electrolytes were within normal limits lactate was 0.9 troponin was less than 0.012 C-reactive protein was elevated at 6.5 sed rate was elevated at 99 procalcitonin 0.4 Urinalysis showed 11-20 white blood cells. Chest x-ray was concerning for possible aspiration Screen is positive for amphetamines and cannabinoids Given the patient's living status and also aspiration pneumonia and polysubstance abuse it was discussed admission versus outpatient patient will be started on Levaquin and Flagyl and the patient be admitted to the hospital for further care. Vital Signs Vital Signs: Vital Signs Temperature 37.4 C 02/07/23 20:13 Pulse Rate 105 H 02/07/23 20:13 Respiratory Rate 16 02/07/23 20:13 Blood Pressure 147/97 H 02/07/23 20:13 Pulse Oximetry 99 02/07/23 20:13 O
[2023-02-08] MEDS: levoFLOXacin 750 MG/D5W 150 ML 750 MG/150 ML BAG 100 MG IVPB ×2 (00:32→21:12)
[2023-02-08 00:41] VITALS: BP 140/76; PULSE 98; RESP 18; O2SAT 95
--- NOTE | 2023-02-08 00:58 | ADMGEN ---
Addendum entered by Jinny Bauer 02/08/23 00:58: This patient, Jeff Hui IV, was admitted to 3 Med Surg Room 317-02 at 0058. Patient/family oriented to hospital policies and general routines including ID bracelet, bed and alarms, visiting hours, pain management, procedures, bathroom and other care routines, personal items, smoking policy, room service/diet, and visiting hours. Information on how to activate the Rapid Response Team has been discussed. Patient/Family are encouraged to report perceived risks to care and to ask questions if they do not understand what they are told or what they should do. Original Note: This patient, Jeff Hui IV, was admitted to 3 Med Surg Room 317-02. Patient/family oriented to hospital policies and general routines including ID bracelet, bed and alarms, visiting hours, pain management, procedures, bathroom and other care routines, personal items, smoking policy, room service/diet, and visiting hours. Information on how to activate the Rapid Response Team has been discussed. Patient/Family are encouraged to report perceived risks to care and to ask questions if they do not understand what they are told or what they should do.
[2023-02-08 01:00] VITALS: BP 110/83; PULSE 95; RESP 18; TEMP 37; O2SAT 96; BMI 34.4
[2023-02-08] MEDS: metroNIDAZOLE 500 MG/ISO 100ML 500 MG/100 ML BAG 100 MG IVPB ×3 (03:30→20:02)
[2023-02-08 06:00] VITALS: BP 112/66; PULSE 83; RESP 18; TEMP 36.6; O2SAT 99
--- NOTE | 2023-02-08 07:30 | PM.IMHP ---
H&P: HPI History of Present Illness Date/Time: 02/08/23 04:50 Chief Complaint: Found unresponsive in a ditch Narrative: 42-year-old male with a past medical it straight methamphetamine and opiate abuse, underlying psychiatric disorder and history of seizures due to prior drug use who presented to the ER after being found down in a ditch. The patient reports that he usually uses methamphetamines every day or every couple of days. He smokes the methamphetamines. But today he decided to snorts some fentanyl to treat is leg pain when he has been having for a couple of days. At the time of my evaluation the patient is very restless and cannot sit still he is having ballistic movements of his arms and legs. He reports that his leg pain is since resolved. He does have some chronic wounds to his right upper palacio. He was treated at either [facility] or [facility] for cellulitis 2-3 weeks ago. When he was discharged he never had his medications refilled. He had waited greater than 10 days to have his meds refilled. He stated that when he went to [facility] in [place] they refused to refill filled his meds. He states he also was prescribed lithium and Prozac during that hospitalization but his external med history does not support this. Unfortunately, pharmacy is also not open so that I can not verify this. He denies any chest pain or shortness of breath. He has no cough or congestion. However x-rays in the ER did demonstrate possible aspiration pneumonia. Patient was also noted to have a white count and an initial temperature of 99.4?. He reports that he last smoked methamphetamines in the afternoon prior to coming to the ER. He denies any nausea or vomiting. He has not been having any diarrhea. He does report some drainage from his eyes. He reports that when he woke up on the morning of the his eyes were sealed shut with green material bilaterally. He reports that his eyes have been itching. He does have some conjunctival erythema on exam. He denies any known injury to his eyes. He does report that he has been losing his toenails. He thinks that this is due to the drug use. He does have a history of IV drug use but has no longer been injecting drugs. He states that he has been snorting fentanyl and smoking methamphetamines Review of Systems Review of Systems: 12 systems were reviewed with pertinent positives and negatives per HPI. Except as documented in the HPI, all other systems were reviewed and are negative. [facility] Past Medical History Medical History (Updated 02/08/23 @ 11:02 by Sky Che MD) Bipolar disorder Continuous tobacco abuse GERD (gastroesophageal reflux disease) Homeless single person Methamphetamine abuse Opiate abuse, episodic Surgical History Surgical History (Updated 02/08/23 @ 07:41 by Reyna Khan DO) History of incision and drainage Multiple abscesses of the extremity due to IV drug use History of open reduction and internal fixation (ORIF) procedure Left elbow Family History Family History Mother Diabetes mellitus Father Heart disease Acute myocardial infarction Social History Social History (Updated 02/08/23 @ 07:46 by Reyna Khan DO) Social History: The patient has a long history of methamphetamine, heroin and fentanyl use. He used to inject methamphetamine and hair when but after having multiple abscesses decide to switch to smoking methamphetamines and snorting fentanyl. He is trying to cut back on smoking but has smoked as much as 1 pack of cigarettes per day since he was age 17. He denies any significant alcohol use. He has been homeless since at least 2019. Smoking packs per day: 1 Smoking cigarettes per day: 20.0 Years smoked: 25 Smoking pack-years: 25.00 Smoking status: Current every day smoker Tobacco type: cigarettes Substance use: current Substance use type: ma
[2023-02-08 07:43] LABS: Basophils Percent Auto 0.4 % (0.2-1.2); Eosinophils Absolute Auto 0.2 K/mm3 (0-0.3); Eosinophils Percent Auto 2.1 % (0-4.4); Hematocrit 34.9 % (42.0-52.0); Hemoglobin 11.1 g/dL (14.0-18.0); Immature Granulocyte Absolute 0.03 K/mm3 (0.00-0.031); Immature Granulocyte Percent A 0.4 % (0-0.5); Lymphocytes Absolute Auto 1.16 K/mm3 (0.9-3.2); Lymphocytes Percent Auto 16.4 % (18.3-44.2); Mean Corpuscular HGB Conc 31.8 g/dl (32-36); Mean Corpuscular Hemoglobin 30.2 pg (26-34); Mean Corpuscular Volume 95.1 fl (80-100); Mean Platelet Volume 10.2 fl (7.4-10.4); Monocytes Percent Auto 14.2 % (2.6-8.5); Neutrophils Absolute Auto 4.7 K/mm3 (1.3-6.7); Neutrophils Percent Auto 66.5 % (45.5-73.1); Platelet Count Result 243 k/mm3 (150-375); Red Blood Count 3.67 M/mm3 (4.6-6.20); Red Cell Distribution Width 12.9 % (11.5-14.5); White Blood Count 7.1 K/mm3 (4.5-10.0)
[2023-02-08 07:55] LABS: Anion Gap 7 mmol/L (8-16); Blood Urea Nitrogen 8 mg/dL (9-20); Carbon Dioxide 27 mmol/L (22-30); Chloride 103 mmol/L (98-107); Estimated CRCL calculation 119 ml/min; Estimated Glomerular Filt Rate > 60; Glucose 104 mg/dL (65-110); Sodium 137 mmol/L (137-145)
--- NOTE | 2023-02-08 07:58 | PC.NURSE ---
[facility] experiencing downtime. pt arrived from ER at the beginning of downtime, with levofloxacin running. ER nurse communicated to this RN that he was due to receive a bag of flagyl after the levofloxacin finished. ER nurse handed this RN said bag of flagyl. Around 0330, the flagyl was administered over an hour, but was not able to be charted in the eMAR. Pt tolerated well.
--- NOTE | 2023-02-08 08:14 | PC.NURSE ---
during admission, pt stated to this nurse that he takes 40mg of Prozac twice a day, and lithium once a day. Call placed to pt's pharmacy, [facility], who told this RN that patient has prozac and lithium available for pickup, but that patient has never picked them up. RN asked patient about medications again, and he stated well, I can't actually remember the last time I took prozac or lithium . Pt confirmed he takes no other medications currently, but does use street drugs for self-medication of pain control.
[2023-02-08 08:18] LABS: Creatine Kinase 369 U/L (55-170)
[2023-02-08] MEDS: ENOXAPARIN 40 MG/0.4 ML SYRINGE SUB-Q (09:22)
[2023-02-08] MEDS: SODIUM CHLORIDE 0.9% IV 1,000 ML 100 ML IV CONT (09:22)
[2023-02-08] MEDS: LORazepam INJ (*CRX) 2 MG/ML VIAL 1 MG IV PUSH ×2 (09:47→17:58)
--- NOTE | 2023-02-08 10:49 | PM.IMPN ---
Progress Note: A&P Assessment and Plan (1) Aspiration pneumonia: Qualifiers: Aspiration pneumonia type: unspecified Laterality: right Lung location: upper lobe of lung Qualified Code(s): J69.0 - Pneumonitis due to inhalation of food and vomit Code(s): J69.0 - Pneumonitis due to inhalation of food and vomit Status: Acute Assessment and Plan: CXR of admission showing RUL airspace disease. Doubt he has aspiration given the know anatomy of the lung. Consider mycobacterium. The patient seems relatively asymptomatic. Blood cultures have been obtained and are pending. Patient has been started on antibiotic therapy with Levaquin and Flagyl due to history of allergy to penicillin. Check Gold test. (2) Accidental drug overdose: Qualifiers: Encounter type: initial encounter Qualified Code(s): T50.901A - Poisoning by unspecified drugs, medicaments and biological substances, accidental (unintentional), initial encounter Code(s): T50.901A - Poisoning by unspecified drugs, medicaments and biological substances, accidental (unintentional), initial encounter Status: Acute Assessment and Plan: The patient has had recent methamphetamine ingestion with akathisia. TCK 369. He was found unresponsive felt related to drug abuse. He was educated about the benefits of abstaining from drug use. He voices understanding but states 'easier said than done'. care coordination to provide information about drug rehab. (3) Opiate abuse, episodic: Code(s): F11.10 - Opioid abuse, uncomplicated Status: Acute Assessment and Plan: Patient was educated about the benefits of abstaining from drug use. He is agreeable for HIV and hepatitis testing. (4) Methamphetamine abuse: Code(s): F15.10 - Other stimulant abuse, uncomplicated Status: Acute Assessment and Plan: Patient was educated about the benefits of abstaining from drug use. (5) Homeless single person: Code(s): Z59.00 - Homelessness unspecified Status: Acute Assessment and Plan: Consult for Case Management placed given patient's homeless state and history of drug abuse. The patient would benefit from rehab placement but he is not likely to follow through. The patient does not seem motivated to change his current status. (6) Continuous tobacco abuse: Code(s): Z72.0 - Tobacco use Status: Acute Assessment and Plan: Patient was educated about the benefits of smoking cessation. (7) Bipolar disorder: Code(s): F31.9 - Bipolar disorder, unspecified Status: Acute Assessment and Plan: Patient has bipolar disorder and has been on lithium and Prozac. The patient has not had any the medications for a minimum of 3 weeks. He would benefit from psychiatric placement for treatment and he would consider this. Will discuss with care coordination about placement options. Subjective Date/time seen: 02/08/23 10:49 Interval history: 42yo male with bipolar disorder, polysubstance use and recent hospitalization for leg cellulitis here after being found unresponsive. He is homeless. Patient feels better today. He slept poorly last night. He denies any chest pain or abdominal pain. No back pain. He still complains of right leg pain. Patient was seen at another hospital and was diagnosed with cellulitis. He never picked up the prescription after discharge. He does have bipolar disorder and was on lithium in the past but has been off this for many weeks. Exam Narrative: AF 97.9 112/66 83 18 99% ra Gen - NARD Chest - CTA bilaterally, nml RR CV - RRR S1/S2 Abd - Soft, NT/ND, Positive BS Ext - No pedal edema Neuro - akathisia noted. no focal weakness Psych - restless Skin - 12x5cm oval red well demarcated patch with 3 dried rounds eschars within this region. Multiple bilateral LE msall sores of various stages of healing and of various size
[2023-02-08 12:39] LABS: HIV 1/2 Ab P24 Ag Result Negative (Negative)
[2023-02-08] MEDS: CIPROFLOXACIN HCL 0.3% OP SOLN 2.5 ML BTL 1 DROP EACH EYE ×3 (12:46→23:34)
[2023-02-08 12:56] LABS: Hepatitis B Surface Antigen Negative (Negative)
[2023-02-08 13:01] LABS: HAV RESULT Negative (Negative); Hepatitis B Core IgM Result Negative (Negative)
[2023-02-08 13:17] LABS: Hepatitis C Virus Antibody Reactive (Negative)
[2023-02-08 13:59] VITALS: BP 111/66; PULSE 68; RESP 20; TEMP 36.2; O2SAT 96
[2023-02-08 20:00] VITALS: PULSE 68; RESP 20; O2SAT 96
[2023-02-08 22:00] VITALS: BP 117/72; PULSE 68; RESP 20; TEMP 36.6; O2SAT 95
[2023-02-09 06:00] VITALS: BP 126/68; PULSE 82; RESP 20; TEMP 36.5; O2SAT 97
[2023-02-09] MEDS: CIPROFLOXACIN HCL 0.3% OP SOLN 2.5 ML BTL 1 DROP EACH EYE ×3 (06:31→18:24)
[2023-02-09 08:58] VITALS: O2SAT 90
[2023-02-09] MEDS: ENOXAPARIN 40 MG/0.4 ML SYRINGE SUB-Q (09:37)
[2023-02-09 14:00] VITALS: BP 128/79; PULSE 60; RESP 20; TEMP 36.3; O2SAT 99
--- NOTE | 2023-02-09 15:25 | PM.IMPN ---
Progress Note: A&P Assessment and Plan (1) Aspiration pneumonia: Qualifiers: Aspiration pneumonia type: unspecified Laterality: right Lung location: upper lobe of lung Qualified Code(s): J69.0 - Pneumonitis due to inhalation of food and vomit Code(s): J69.0 - Pneumonitis due to inhalation of food and vomit Status: Acute Assessment and Plan: CXR of admission showing RUL airspace disease. Doubt he has aspiration given the know anatomy of the lung. Consider mycobacterium. The patient seems relatively asymptomatic. Blood cultures NGTD. UCx Negative. Patient has been started on antibiotic therapy with Levaquin and Flagyl due to history of allergy to penicillin. Gold test pending. (2) Accidental drug overdose: Qualifiers: Encounter type: initial encounter Qualified Code(s): T50.901A - Poisoning by unspecified drugs, medicaments and biological substances, accidental (unintentional), initial encounter Code(s): T50.901A - Poisoning by unspecified drugs, medicaments and biological substances, accidental (unintentional), initial encounter Status: Acute Assessment and Plan: The patient was found unresponsive due to recent methamphetamine ingestion. TCK 369. He was educated about the benefits of abstaining from drug use. He voices understanding but states 'easier said than done'. care coordination provided information about drug rehab. (3) Opiate abuse, episodic: Code(s): F11.10 - Opioid abuse, uncomplicated Status: Acute Assessment and Plan: Patient was educated about the benefits of abstaining from drug use. HIV and hepatitis testing negative except HepC screen positive. Further testing for HepC pending. (4) Methamphetamine abuse: Code(s): F15.10 - Other stimulant abuse, uncomplicated Status: Acute Assessment and Plan: Patient was educated about the benefits of abstaining from drug use. (5) Homeless single person: Code(s): Z59.00 - Homelessness unspecified Status: Acute Assessment and Plan: Consult for Case Management placed given patient's homeless state and history of drug abuse. The patient would benefit from rehab placement but he is not likely to follow through. The patient does not seem motivated to change his current status. (6) Continuous tobacco abuse: Code(s): Z72.0 - Tobacco use Status: Acute Assessment and Plan: Patient was educated about the benefits of smoking cessation. (7) Bipolar disorder: Code(s): F31.9 - Bipolar disorder, unspecified Status: Acute Assessment and Plan: Patient has bipolar disorder and has been on lithium and Prozac. The patient has not had any the medications for a minimum of 3 weeks. He would benefit from psychiatric placement for treatment and he would consider this. Will discuss with care coordination about placement options. Plan Abnml UA - semen in urine. No scrotal masses on exam. Check US. Subjective Date/time seen: 02/09/23 15:25 Interval history: 42yo male with bipolar disorder, polysubstance use and recent hospitalization for leg cellulitis here after being found unresponsive. He is homeless. Slpet well. Eating okay. No CP or SOB. No cough. RN unable to get new IV. Occasional feeling of lower abd crampy pain Exam Narrative: AF 97.3 128/79 60 20 99% ra Gen - NARD Chest - CTA bilaterally, nml RR CV - RRR S1/S2 Abd - Soft, NT/ND, Positive BS - circumsized. testes descended and not tender or enlarged (although left>right) Ext - No pedal edema Neuro - calm and cooperative Psych - restless Skin - 12x5cm oval red well demarcated patch to the right cinda Objective Data Vital Signs Vital Signs: Vital Signs - 24 hr 02/08/23 20:00 02/08/23 22:00 02/09/23 06:00 Temperature 97.8 F 97.7 F Pulse Rate 68 68 82 Respiratory Rate 20 20 20 Blood Pressure 117/72 126/68 Pulse Oximetr
[2023-02-09] MEDS: metroNIDAZOLE 250 MG TABLET 500 MG PO ×2 (16:48→21:01)
[2023-02-09] MEDS: levoFLOXacin 750 MG TABLET PO (21:01)
[2023-02-09 21:33] VITALS: O2SAT 92
[2023-02-09 22:00] VITALS: BP 128/60; PULSE 55; RESP 20; TEMP 36.2; O2SAT 96
[2023-02-10] MEDS: CIPROFLOXACIN HCL 0.3% OP SOLN 2.5 ML BTL 1 DROP EACH EYE ×3 (00:34→14:03)
[2023-02-10 06:00] VITALS: BP 122/74; PULSE 75; RESP 20; TEMP 36.4; O2SAT 97
[2023-02-10] MEDS: metroNIDAZOLE 250 MG TABLET 500 MG PO ×2 (06:23→14:03)
[2023-02-10 07:22] LABS: Creatine Kinase 46 U/L (55-170)
[2023-02-10] MEDS: ENOXAPARIN 40 MG/0.4 ML SYRINGE SUB-Q (09:27)
--- NOTE | 2023-02-10 13:35 | PM.DS ---
DS: Admitting Diagnosis Discharge Date 02/10/23 Admitting Diagnosis Unresponsive DS: Discharge Diagnosis Discharge Diagnosis (1) Aspiration pneumonia: Qualifiers: Aspiration pneumonia type: unspecified Laterality: right Lung location: upper lobe of lung Qualified Code(s): J69.0 - Pneumonitis due to inhalation of food and vomit Code(s): J69.0 - Pneumonitis due to inhalation of food and vomit Status: Acute (2) Accidental drug overdose: Qualifiers: Encounter type: initial encounter Qualified Code(s): T50.901A - Poisoning by unspecified drugs, medicaments and biological substances, accidental (unintentional), initial encounter Code(s): T50.901A - Poisoning by unspecified drugs, medicaments and biological substances, accidental (unintentional), initial encounter Status: Acute (3) Opiate abuse, episodic: Code(s): F11.10 - Opioid abuse, uncomplicated Status: Acute (4) Methamphetamine abuse: Code(s): F15.10 - Other stimulant abuse, uncomplicated Status: Acute (5) Homeless single person: Code(s): Z59.00 - Homelessness unspecified Status: Acute (6) Continuous tobacco abuse: Code(s): Z72.0 - Tobacco use Status: Acute (7) Bipolar disorder: Code(s): F31.9 - Bipolar disorder, unspecified Status: Acute DS: Summary Hospital Course Reason for hospitalization: 42yo male with bipolar disorder, polysubstance use and recent hospitalization for leg cellulitis here after being found unresponsive. He is homeless. Please see H&P for details. Hospital Course: The patient was found unresponsive due to recent methamphetamine ingestion.? TCK 369. He became awake and alert. He did have symptoms of withdrawal. CXR on admission showing RUL airspace disease. Doubt he has aspiration given the know anatomy of the lung. Consider mycobacterium so Gold test ordered. The patient was relatively asymptomatic. Blood cultures NGTD. UCx Negative.? Patient was started on antibiotic therapy with Levaquin and Flagyl due to history of allergy to penicillin. HIV and hepatitis testing negative except HepC screen positive. Further testing for HepC pending. RPR pending. Patient had semen noted in his urine. There are no testicular masses on exam. Scrotal ultrasound showed no testicular masses but showed a right epididymal cyst measuring 6 mm. Patient was educated about the benefits of abstaining from drug use. He voices understanding but states 'easier said than done'. Patient is homeless.?He was seen by [facility]. The patient would benefit from rehab placement but he was uninterested.? The patient does not seem motivated to change his current status. Patient was educated about the benefits of smoking cessation. Patient states he has bipolar disorder and has been on lithium and Prozac in the past. The patient has not had any the medications for a minimum of 3 weeks.? He was provided resources including homeless shelters, counseling, substance abuse resources with strong suggestion to contact chest not to get it to crisis housing services. Patient did not want to go to a homeless [facility]. He plans to take a cab with a cab voucher to the pharmacy then back to his girlfriend's house. Patient overall did well and was able to be discharged on 02/10/2023. Status at Discharge Cognitive/behavioral status at discharge: stable Time Spent with Patient Time attestation: Total time spent providing and/or coordinating discharge services: 37 minutes Time spent: Greater than 30 minutes Exam Narrative: AF 97.6 122/74 75 20 97% ra Gen - NARD Chest - CTA bilaterally, nml RR CV - RRR S1/S2 Abd - Soft, NT/ND, Positive BS Ext - No pedal edema Neuro - calm and cooperative Skin - 12x5cm oval red well demarcated patch to the right palacio DS: Data Data Completed and Pending Labs on day of discharge: Labs from last 24 hours 02/10/23 06:53 Total Creati
[2023-02-11 13:51] LABS: Rapid Plasma Reagin Non-Reactive (NonReactive)
[2023-02-12 06:58] LABS: Hepatitis C RNA, Quant PCR <15 IU/mL
--- NOTE | 2023-02-12 10:01 | PC.NURSE ---
HEP C RNA is <1.18; WNL. RPR is non-reactive. Dr. Chinedu holloway.
[2023-02-12 11:32] LABS: NIL 0.01 IU/mL; Quantiferon TB Plus, 1T NEGATIVE (NEGATIVE)
--- NOTE | 2023-02-15 11:36 | PC.NURSE ---
TB test Gold Plus is negative. Dr. Chinedu holloway.
--- NOTE | 2023-02-20 07:39 | PC.NURSE ---
Faxed Hepatitis results to Dr. Cason.
== END 2023-02-10 15:30 | disposition home or self-care (01) ==
LOC: ANHED 23:28 → ANH3MEDSUR 02-08 00:59
PROVIDERS: Admitting Provider Internal Medicine; Emergency Provider Emergency Medicine; PCP Emergency Medicine; Visit Provider Internal Medicine
DX: J69.0 Pneumonitis due to inhalation of food and vomit (principal); T43.651A Poisoning by methamphetamines accidental (unintentional), initial encounter; T40.411A Poisoning by fentanyl or fentanyl analogs, accidental (unintentional), initial encounter; N50.3 Cyst of epididymis; R50.9 Fever, unspecified; R00.0 Tachycardia, unspecified; R60.0 Localized edema; F31.9 Bipolar disorder, unspecified; M79.662 Pain in left lower leg; M79.661 Pain in right lower leg; Z11.4 Encounter for screening for human immunodeficiency virus [HIV]; K21.9 Gastro-esophageal reflux disease without esophagitis; Z59.00 Homelessness unspecified; F17.210 Nicotine dependence, cigarettes, uncomplicated; F15.10 Other stimulant abuse, uncomplicated; F11.10 Opioid abuse, uncomplicated; F12.90 Cannabis use, unspecified, uncomplicated; Z79.899 Other long term (current) drug therapy
CPT/HCPCS: 36415; 71045; 76870; 80048; 80053; 80074; 80307; 81001; 82550; 82948; 83605; 83735; 84145; 84484; 85025; 85652; 86140; 86480; 86592; 86703; 87040; 87086; 87522; 93005; 93970; 93976; 96361; 96365; 96372; 96375; 96376; 99285; A9270; G0378; G0379; G0432; J1650; J1836; J1956; J2060; J7030

== ENCOUNTER 2023-02-19 19:57 | Emergency (ER) | payer MEDICAID, SELFPAY ==
[2023-02-19 19:56] VITALS: BP 144/77; PULSE 99; RESP 20; TEMP 37.4; O2SAT 99
--- NOTE | 2023-02-19 20:38 | ED.SKABFB ---
HPI - Skin/Abscess/Foreign Bdy General Chief complaint: Skin/Abscess/Foreign Body Stated complaint: sores on legs Time Seen by Provider: 02/19/23 20:05 History of Present Illness HPI narrative: Patient is a 42-year-old male who presents ER with concerns for abscess. He has an abscess developing over the right thigh, the left thigh, the left elbow as well as the right upper arm. They been worsening over the last 3 days. He has been trying to shoot meth in those areas. He was seen at [facility] couple days ago and was prescribed a cephalosporin however he did not fill it until today and has not yet taken any medication. He does report he has had some drainage from the areas. No fevers or chills or sweats. No additional concerns. Related Data Allergies Allergy/AdvReac Type Severity Reaction Status Date / Time Penicillins AdvReac Nausea and Verified 06/25/22 10:45 Vomiting Review of Systems Review of Systems: All systems reviewed & are unremarkable except as noted in HPI and below Constitutional: Constitutional: Denies chills, Denies fatigue and Denies fever(s) Cardiovascular: Cardiovascular: Reports no additional cardiovascular complaints Respiratory: Respiratory: Reports no additional respiratory complaints Gastrointestinal: Gastrointestinal: Reports no additional gastrointestinal complaints Integumentary/Breasts: Skin/Breast: Denies pruritus and Reports erythema Comments: Abscess PMFSH Past Medical History Medical History (Updated 02/19/23 @ 21:41 by Patrick Alcazar MD) Bipolar disorder Continuous tobacco abuse GERD (gastroesophageal reflux disease) Homeless single person Methamphetamine abuse Opiate abuse, episodic Surgical History Surgical History (Updated 02/08/23 @ 07:41 by Reyna Khan DO) History of incision and drainage Multiple abscesses of the extremity due to IV drug use History of open reduction and internal fixation (ORIF) procedure Left elbow Family History Family History Mother Diabetes mellitus Father Heart disease Acute myocardial infarction Social History Social History (Updated 02/08/23 @ 07:46 by Reyna Khan DO) Social History: The patient has a long history of methamphetamine, heroin and fentanyl use. He used to inject methamphetamine and hair when but after having multiple abscesses decide to switch to smoking methamphetamines and snorting fentanyl. He is trying to cut back on smoking but has smoked as much as 1 pack of cigarettes per day since he was age 17. He denies any significant alcohol use. He has been homeless since at least 2019. Smoking packs per day: 1 Smoking cigarettes per day: 20.0 Years smoked: 25 Smoking pack-years: 25.00 Smoking status: Current every day smoker Tobacco type: cigarettes Substance use: current Substance use type: marijuana and methamphetamine Lack of Transportation: YES Lack of Food: Sometimes True Current Housing: I Do Not Have Housing Concerned About Future Housing: YES Difficulty Paying Gas/Electric Bills: YES Difficulty Paying for Meds: YES Currently Unemployed: YES Education: High School Diploma/GED Difficulty w/ Childcare or Family Care: No Gender identity (if verbalized by the patient): Male Spiritual care concerns: No Exam Narrative: GENERAL: Anxious-appearing, well-nourished, and in no acute distress. HEAD: Normocephalic, atraumatic. ENT: Mucous membranes moist. NECK: Supple. CHEST: Clear to auscultation. No respiratory distress. HEART: Regular rate and rhythm. Normal peripheral pulses. ABDOMEN: Soft, nontender, nondistended. EXTREMITIES: Normal range of motion. No edema. SKIN: Warm, dry. Abscess x4. Largest to the left anterior thigh and the right lateral distal thigh. Additionally has small abscess to the posterior elbow more over the upper arm than the actual elbow as well a
[2023-02-19] MEDS: LIDO 1%/EPINEPHRINE 1:100,000 20 ML VIAL (21:04)
--- NOTE | 2023-02-19 21:04 | PC.NURSE ---
Dressing and lac tray supplies placed in room for Dr. Alcazar. Pt laying in bed, no requests at this time.
[2023-02-19] MEDS: DOXYCYCLINE HYCLATE 100 MG TABLET PO (21:19)
[2023-02-19 21:49] VITALS: BP 146/72; PULSE 90; RESP 20; O2SAT 98
== END 2023-02-19 21:50 | disposition home or self-care (01) ==
PROVIDERS: Emergency Provider Emergency Medicine; PCP Emergency Medicine
DX: L03.113 Cellulitis of right upper limb (principal); L03.114 Cellulitis of left upper limb; L02.416 Cutaneous abscess of left lower limb; L02.415 Cutaneous abscess of right lower limb; F17.210 Nicotine dependence, cigarettes, uncomplicated
CPT/HCPCS: 10061; 99283; A9270

== ENCOUNTER 2023-07-08 22:05 | Emergency (ER) | payer BC, SELFPAY ==
[2023-07-08 22:47] VITALS: BP 140/100; PULSE 89; RESP 18; TEMP 36.6; O2SAT 100
[2023-07-09 02:03] LABS: Basophils Percent Auto 0.4 % (0.2-1.2); Eosinophils Absolute Auto 0.1 K/mm3 (0-0.3); Eosinophils Percent Auto 1.4 % (0-4.4); Hematocrit 41.1 % (42.0-52.0); Hemoglobin 13.4 g/dL (14.0-18.0); Immature Granulocyte Absolute 0.02 K/mm3 (0.00-0.031); Immature Granulocyte Percent A 0.3 % (0-0.5); Lymphocytes Absolute Auto 1.94 K/mm3 (0.9-3.2); Lymphocytes Percent Auto 24.9 % (18.3-44.2); Mean Corpuscular HGB Conc 32.6 g/dl (32-36); Mean Corpuscular Hemoglobin 29.3 pg (26-34); Mean Corpuscular Volume 89.7 fl (80-100); Mean Platelet Volume 9.9 fl (7.4-10.4); Monocytes Absolute Auto 0.6 K/mm3 (0.1-0.6); Neutrophils Absolute Auto 5.1 K/mm3 (1.3-6.7); Platelet Count Result 294 k/mm3 (150-375); Red Blood Count 4.58 M/mm3 (4.6-6.20); Red Cell Distribution Width 13.2 % (11.5-14.5); White Blood Count 7.8 K/mm3 (4.5-10.0)
[2023-07-09 02:10] LABS: Appearance Urine Cloudy (Clear); Bacteria Urine None Seen /hpf; Bilirubin Urine Negative (Negative); Blood Urine Negative (Negative); Color Urine Yellow (Yellow); Glucose Urine UA Negative (Negative); Ketones Urine Negative (Negative); Leukocyte Esterase Ur Negative LEU/UL (Negative); Nitrate Urine Negative (Negative); Non Pathogenic Casts 0-2; Protein Urine Negative (Negative); RBC Urine 0-2 /hpf (0-2); Specific Grav Ur 1.016 (1.001-1.035); Squamous Epithelial Cell Urine None seen /hpf (Few); Urobilinogen Urine 0.2 mg/dL (<2.0); WBC Urine 0-5 /hpf; pH Urine 6.5 (5.0-9.0)
[2023-07-09 02:13] LABS: Alanine Aminotransferase 24 U/L (6-50); Albumin Level 4.2 g/dL (3.5-5.1); Alkaline Phosphatase 82 U/L (38-126); Anion Gap 5 mmol/L (8-16); Aspartate Amino Transferase 24 U/L (17-59); Bilirubin,Total 0.5 mg/dL (0.2-1.3); Blood Urea Nitrogen 11 mg/dL (9-20); Calcium 9.5 mg/dL (8.4-10.2); Carbon Dioxide 28 mmol/L (22-30); Chloride 105 mmol/L (98-107); Estimated CRCL calculation 111 ml/min; Estimated Glomerular Filt Rate > 60; Glucose 110 mg/dL (65-110); Potassium 4.1 mmol/L (3.4-5.0); Sodium 138 mmol/L (137-145)
[2023-07-09 02:15] LABS: Ethanol < 10 mg/dL (<10)
--- NOTE | 2023-07-09 02:20 | ED.GENADULT ---
HPI - General Adult General Chief complaint: Psychiatric Symptoms Stated complaint: callus on hands Time Seen by Provider: 07/09/23 00:32 History of Present Illness HPI narrative: Patient 43-year-old gentleman who presents to emergency department with chief complaint of bugs crawling out of his hand. The patient states that for some time he has had bugs is been crawling on the calluses in his hands reports that nobody believes him the patient states he last used meth about 3 days ago and states that he does not think it is the meth because that because it has been 3 hole days since he has used meth patient denies suicidal or homicidal ideation Related Data Allergies Allergy/AdvReac Type Severity Reaction Status Date / Time Penicillins AdvReac Nausea and Verified 07/08/23 22:06 Vomiting Review of Systems Review of Systems: A 10 system review of systems was completed on the patient and is negative except for what is stated in the HPI. Nursing and ancillary documentation was reviewed. [facility] Past Medical History Medical History Bipolar disorder Continuous tobacco abuse GERD (gastroesophageal reflux disease) Homeless single person Methamphetamine abuse Opiate abuse, episodic Surgical History Surgical History History of incision and drainage Multiple abscesses of the extremity due to IV drug use History of open reduction and internal fixation (ORIF) procedure Left elbow Family History Family History Mother Diabetes mellitus Father Heart disease Acute myocardial infarction Social History Social History Social History: The patient has a long history of methamphetamine, heroin and fentanyl use. He used to inject methamphetamine and hair when but after having multiple abscesses decide to switch to smoking methamphetamines and snorting fentanyl. He is trying to cut back on smoking but has smoked as much as 1 pack of cigarettes per day since he was age 17. He denies any significant alcohol use. He has been homeless since at least 2019. Smoking packs per day: 1 Smoking cigarettes per day: 20.0 Years smoked: 25 Smoking pack-years: 25.00 Smoking status: Current every day smoker Tobacco type: cigarettes Substance use: current Substance use type: marijuana and methamphetamine Lack of Transportation: YES Lack of Food: Sometimes True Current Housing: I Do Not Have Housing Concerned About Future Housing: YES Difficulty Paying Gas/Electric Bills: YES Difficulty Paying for Meds: YES Currently Unemployed: YES Education: High School Diploma/GED Difficulty w/ Childcare or Family Care: No Gender identity (if verbalized by the patient): Male Spiritual care concerns: No Exam Narrative: GENERAL: Well-appearing, well-nourished, and in no acute distress. HEAD: Normocephalic, atraumatic. EYES: PERRLA and EOMI. ENT: Nares clear, no rhinorrhea or epistaxis. Mucous membranes moist. NECK: Supple. CHEST: Clear to auscultation. No respiratory distress. HEART: Regular rate and rhythm. No murmur heard. Normal peripheral pulses. ABDOMEN: Soft, nontender, nondistended, normal active bowel sounds. EXTREMITIES: Normal range of motion. No edema. SKIN: Warm, dry, no rash. dry cracked skin on the hand NEURO: No focal deficits. Alert and oriented x3. PSYCH: Normal mood and affect. Course Vital Signs Vital signs: Vital Signs Temperature 36.6 C 07/08/23 22:47 Pulse Rate 89 07/08/23 22:47 Respiratory Rate 18 07/08/23 22:47 Blood Pressure 140/100 H 07/08/23 22:47 Pulse Oximetry 100 07/08/23 22:47 Oxygen Delivery Room Air 07/08/23 22:47 Temperature 36.6 C 07/08/23 22:47 Pulse Rate 89 07/08/23 22:47 Res
[2023-07-09 02:21] LABS: Add Urine Microscopic? YES; Barbiturate Screen Urine Negative (Negative); Benzodiazepines Screen Urine Negative (Negative); Cannabinoid Screen Urine Positive (Negative); Cocaine Screen Urine Negative (Negative); Methadone Screen Urine Negative (Negative); Opiate Screen Urine Negative (Negative); Phencyclidine Screen Urine Negative (Negative)
[2023-07-09 02:41] LABS: Influenza A QL RT-PCR Negative (Negative); Influenza B QL RT-PCR Negative (Negative); RSV RNA, RT-PCR Negative (Negative); SARS-CoV-2 RNA PCR Negative (Negative)
[2023-07-09 02:45] LABS: Amphetamine Screen Urine Positive (Negative)
[2023-07-09 04:28] VITALS: BP 138/87; PULSE 87; RESP 16; O2SAT 97
== END 2023-07-09 04:29 | disposition home or self-care (01) ==
PROVIDERS: Emergency Provider Emergency Medicine
DX: R20.2 Paresthesia of skin (principal); F15.10 Other stimulant abuse, uncomplicated; F12.90 Cannabis use, unspecified, uncomplicated; F17.210 Nicotine dependence, cigarettes, uncomplicated; Z20.822 Contact with and (suspected) exposure to COVID-19
CPT/HCPCS: 36415; 80053; 80307; 81001; 84443; 85025; 87637; 99283

== ENCOUNTER 2023-07-21 07:47 | Emergency (ER) | payer BC, SELFPAY ==
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
--- NOTE | ~2023-07-21 | CT_ITS ---
EXAMINATION: CT brain wo con DATE: 07/21/2023 08:36 INDICATION: Head injury. TECHNIQUE: Computed tomography (CT) of the head was performed without intravenous contrast. The mA wa s adjusted according to patient size. Iterative reconstruction technique was employed. The dose-lengt h product was 908.00 mGy-cm. COMPARISON: Head CT 09/22/2020 FINDINGS: There is no intracranial hemorrhage, acute infarction, or abnormal intracranial mass lesion . The ventricles are normal in size. There are old blowout fractures of the medial ferguson of the orbit s. There is mild mucosal thickening in the paranasal sinuses. The mastoid air cells are normal. IMPRESSION: 1. Normal brain. Reviewed, dictated and finalized at location A. SPECIALIST IMPRESSION: 1. Normal brain.
[2023-07-21 07:43] VITALS: BP 144/82; PULSE 73; RESP 21; TEMP 36.7; O2SAT 100
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
--- NOTE | 2023-07-21 08:18 | PC.NURSE ---
called dietary and ordered a breakfast tray for pt at this time
[2023-07-21 08:56] LABS: Influenza A QL RT-PCR Negative (Negative); Influenza B QL RT-PCR Negative (Negative); RSV RNA, RT-PCR Negative (Negative); SARS-CoV-2 RNA PCR Negative (Negative)
[2023-07-21 08:59] VITALS: BP 124/67; PULSE 66; RESP 14; O2SAT 99
== END 2023-07-21 09:54 | disposition home or self-care (01) ==
PROVIDERS: Emergency Provider Emergency Medicine
DX: S42.124A Nondisplaced fracture of acromial process, right shoulder, initial encounter for closed fracture (principal); F17.210 Nicotine dependence, cigarettes, uncomplicated; K21.9 Gastro-esophageal reflux disease without esophagitis; F31.9 Bipolar disorder, unspecified; V18.0XXA Pedal cycle driver injured in noncollision transport accident in nontraffic accident, initial encounter; Z20.822 Contact with and (suspected) exposure to COVID-19
CPT/HCPCS: 70450; 73030; 87637; 99284; A4565